=== PATIENT | male | born 1950 | race Caucasian/White ===

== ENCOUNTER 2018-02-19 07:15 | Day surgery (SDC) | payer OTHER ==
--- NOTE | 2018-02-12 15:37 | HP ---
AMENDED REPORT NOW INCLUDES DESIGNATED COSIGNER CC: Dr. Peter Pires * PREOPERATIVE HISTORY AND PHYSICAL: DATE OF ADMISSION: 02/19/18 This patient is scheduled for same-day surgery admission by Dr. Pacheco, on 02/19/18. DATE OF EXAMINATION: 02/12/18 ATTENDING SURGEON: Dr. Khoi Pacheco * (dictated by Briana Russell NP). CHIEF COMPLAINT: Umbilical hernia, right inguinal hernia, possible left inguinal hernia. HISTORY OF PRESENT ILLNESS: The patient is a 67-year-old male with a history of hypertension, hypothyroidism, and benign prostatic hypertrophy. He presented to the office for consultation with Dr. Pacheco with a right inguinal hernia and an umbilical hernia which he has had for up to 1 year. He notes that he was also told that he has a left inguinal hernia by a urologist about 7 years ago. Currently, he has discomfort in the right groin and this is most notable when he coughs or sneezes or if he has been standing for long periods. He denies any umbilical pain or left inguinal pain. He started using a truss for the right inguinal hernia, but discontinued that because it was causing back spasms and he was prescribed a muscle relaxant. He denies any signs or symptoms to suggest incarceration or strangulation; he has nocturia x1 typically , a history of benign prostatic hypertrophy and bladder diverticula for which he sees a urologist in [place]. Dr. Pacheco examined the patient and there is a reducible right inguinal hernia palpated and Dr. Pacheco stated that he could not feel a left inguinal hernia. He noted a reducible umbilical hernia with a 1 to [address] Pacheco reviewed the findings with the patient and discussed surgical options for repair. He explained the nature of hernias and their potential complications. Dr. Pacheco recommended surgical repair and the patient has opted for an open repair of the right inguinal hernia with mesh and open repair of umbilical hernia with mesh and possible open left inguinal hernia repair with mesh. Dr. Pacheco discussed the relevant risks and benefits and today I reviewed the typical postoperative care and recovery. The patient has had a chance to ask questions and stated that he understands the information and is satisfied with the answers given to his questions. He will sign surgical consent on the day of surgery. PAST MEDICAL HISTORY: Hypertension, hypothyroidism, and benign prostatic hypertrophy. PAST SURGICAL HISTORY: Vasectomy and excision of skin cancer on his scalp and tonsillectomy around age 10. MEDICATIONS: 1. Levothyroxine 100 mcg p.o. daily. 2. Amlodipine 5 mg p.o. daily. 3. Lisinopril 40 mg p.o. daily. 4. Tamsulosin 0.4 mg p.o. b.i.d. 5. Metaxalone 800 mg t.i.d. p.r.n. back spasms. He states that he takes most of his medications in the evening. ALLERGIES: No known drug allergies. He is allergic to BEE STINGS. FAMILY HISTORY: Father with a history of pancreatic cancer, sister had breast cancer. No known anesthesia complications, bleeding disorders, or clotting disorders. SOCIAL HISTORY: He is and retired. He is a nonsmoker. He denies use of alcohol or other substances. REVIEW OF SYSTEMS: Constitutional: No fevers, chills, excessive fatigue, or weight loss. Endocrine: He is treated for hypothyroidism. No diabetes. Hematologic: No easy bruising or bleeding. He has never required a blood transfusion. Respiratory: No dyspnea on exertion, no chronic cough. Cardiovascular: No history of myocardial infarction, no anginal chest pain, no palpitations or chest pressure. Gastrointestinal: No nausea, vomiting, diarrhea, GI bleeding, or constipation. No change in bowel habits. Genitourinary: Nocturia x1 typically; benign prostatic hypertrophy. No pain with urination. Musculoskeletal: Intermittent back spasms, currently taking a muscle relaxant as needed, no other joint pain. Integumentary: No chronic rashes or skin changes. Neurologic: No headache, no blurred vision, no areas of focal weakness or numbness. General: No previous anesthesia complications, no history of deep vein thrombosis or pulmonary embolism. PHYSICAL EXAMINATION GENERAL SURVEY: The patient is a 67-year-old overweight male, well developed, in no acute distress. VITAL SIGNS: Height 68.5 inches, weight 225 pounds, body mass index 33.7. Blood pressure 130/84, pulse 72 and regular, respiratory rate 16, temperature 97.3 tympanic. SKIN: Warm, dry, intact. HEENT: Benign. NECK: Supple. No cervical lymphadenopathy, no thyromegaly. Trachea midline. BACK: No CVA tenderness. LUNGS: Breath sounds bilaterally clear and equal. HEART: Regular rate and rhythm. No murmurs or rubs appreciated. ABDOMEN: Obese, active bowel sounds, soft, nondistended, nontender throughout. Obvious umbilical hernia, reducible, with a 1 to 2 cm sized defect. No other obvious abdominal masses, no scars, no organomegaly. Inguinal exam done by Dr. Pacheco reveals a reducible right inguinal hernia and no obvious left inguinal hernia was palpated. EXTREMITIES: Warm, without edema or skin ulceration. GENITALIA AND RECTAL: Exams deferred. NEUROLOGIC: Alert and oriented x3, steady gait. IMPRESSION: 1. Right inguinal hernia. 2. Possible left inguinal hernia. 3. Umbilical hernia. PLAN/RECOMMENDATIONS: Same-day surgery admission to Dr. Pacheco' service on 02/19/18, for open right inguinal hernia repair with mesh, possible open left inguinal hernia repair with mesh, open umbilical hernia repair with mesh. YING RUSSELL, FABRIC AND ACCESSORIES ESTIMATOR [id number]/[facility] #: [id number] MTDD
[~2018-02-19 07:15] MED LIST: Buffered Lidocaine 1% SYRIN* 1 ML/SYRINGE INTRADERM ONE; Dexamethasone IV* 4 MG/ML 1 ML (4 MG) IV SLOW PU ONE; Famotidine IV* 10 MG/ML 2 ML (20 mg) IV ONE; Lactated Ringers 1000 ML Bag* 1,000 ML IV SCH
[2018-02-19] MEDS ORDERED: Dexamethasone IV* 4 MG/ML 1 ML (4 MG) ONE (07:48)
[2018-02-19] MEDS ORDERED: Famotidine IV* 10 MG/ML 2 ML (20 mg) ONE (07:48)
[2018-02-19] MEDS ORDERED: ceFAZolin 2 GM PREMIX in ORs 2 GM/50 ML BAG IVPB ONE (07:48)
[2018-02-19] MEDS ORDERED: fentaNYL* 50 MCG/ML 5 ML VIAL (250 MCG VIAL) ONE (08:42)
[2018-02-19] MEDS ORDERED: Midazolam* 1 MG/ML 2 ML VIAL (2 MG) ONE (08:42)
[2018-02-19] MEDS ORDERED: Lidocaine 1% INJ* 10 MG/ML 30 ML SDV ONE (09:02)
[2018-02-19] MEDS ORDERED: Bupivacaine 0.5% W/EPI SDV* 30 ML VIAL ONE (09:02)
[2018-02-19] MEDS ORDERED: Propofol* 500 MG/50 ML BTL ONE (09:09)
[2018-02-19] MEDS ORDERED: Propofol* 10 MG/ML 20 ML BTL ONE ×2 (09:11→10:46)
[2018-02-19] MEDS ORDERED: Morphine VIAL* 4 MG/ML VIAL (1 ml vial) IV PRN (10:04)
[2018-02-19] MEDS ORDERED: Acetaminophen TAB* 325 MG PO PRN (10:04)
[2018-02-19] MEDS ORDERED: HYDROcodone/ACETAMIN 5-325 MG* 1 TAB PO PRN (10:04)
[2018-02-19] MEDS ORDERED: Ondansetron INJ* 2 MG/ML VIAL IV PRN (10:04)
[2018-02-19] MEDS ORDERED: fentaNYL* 50 MCG/ML 2 ML VIAL (100 MCG VIAL) IV PRN (10:04)
[2018-02-19] MEDS ORDERED: Naloxone* 0.4 MG/ML 1 ML VIAL IV PRN (10:04)
[2018-02-19] MEDS ORDERED: Ketorolac INJ* 30 MG/ML 1 ML VIAL IV PRN (10:04)
[2018-02-19] MEDS ORDERED: fentaNYL* 50 MCG/ML 2 ML VIAL (100 MCG VIAL) ONE ×2 (10:40→12:12)
[2018-02-19] MEDS ORDERED: Ketorolac INJ* 30 MG/ML 1 ML VIAL ONE (11:56)
[2018-02-19] MEDS ORDERED: HYDROcodone/ACETAMIN 5-325 MG* 1 TAB ONE (12:12)
[2018-02-19 12:51] VITALS: BP 125/87
--- NOTE | 2018-02-20 00:46 | OP ---
CC: Peter Pires MD * DATE OF OPERATION: 02/19/18 - [facility] DATE OF : 50 SURGEON: Khoi Pacheco MD HORSE TREKKING GUIDE: TAYA Guardado ANESTHESIOLOGIST: Dr. Duarte. ANESTHESIA: Local MAC. PRE-OP DIAGNOSES: Right inguinal hernia and umbilical hernia. POST-OP DIAGNOSES: Right inguinal hernia and umbilical hernia. OPERATIVE PROCEDURE: Open repair of right inguinal hernia with mesh and open primary repair of umbilical hernia. ESTIMATED BLOOD LOSS: Minimal. FLUIDS: Crystalloids. SPECIMENS: None. DRAINS: None. COMPLICATIONS: None. COUNTS: The instrument, needle, and sponge counts were correct. OPERATIVE FINDINGS: Direct and indirect right inguinal hernia. An 1.5 cm umbilical hernia. DESCRIPTION OF PROCEDURE: The patient was brought to the operating room and placed on the table supine. Sequential compression devices were placed on both lower extremities. Intravenous sedation was administered as well as intravenous antibiotics. The patient was positioned and padded appropriately and he was prepped and draped in the usual sterile fashion and a time-out was performed. Local anesthetic was infiltrated as a field block in the right groin. An oblique incision was created carrying this down into the subcutaneous tissue where crossing veins were divided between clamps and ligated with 4 absorbable ties. Additional subcutaneous tissue was divided with cautery and external oblique aponeurosis was identified, then infiltrated with local anesthetic and opened along the line of its fibers through the superficial ring. The patient had a large indirect inguinal hernia which contained small bowel and there was also a direct inguinal hernia which appeared to contain only fat. The decision was to perform this repair with mesh. First, the ilioinguinal nerve was identified, mobilized, and preserved in the lateral position. The contents of the inguinal canal were then isolated with a 1/4- inch Shakeel drain and the indirect inguinal hernia sac was identified. The cord structures were dissected free from this and this was reduced beyond the deep ring. In order to keep this reduced, a sponge stick was used to hold this in while the dissection proceeded further identifying the direct inguinal hernia. At this point, a Ethicon PHS extended size patch was selected and the preperitoneal space was opened along the lateral border of the rectus. The preperitoneal space was dissected out using blunt dissection with a finger and sponge stick. The inferior epigastric vessels were preserved. The PHS patch was placed with a preperitoneal patch unfurled into the space and then the onlay portion was exteriorized and sutured to the pubic tubercle, the conjoint tendon and the shelving edge of the inguinal ligament with interrupted 2-0 Vicryl suture. An inferior slit was created in the mesh to allow the egress of the spermatic cord. This slit was reconstituted with interrupted suture of 2-0 Prolene. Additional sutures of 2-0 Vicryl were placed along the inguinal ligament and at this point, because of the large size of the direct ring, it was decided to use a mesh plug in this position. So, a plug was placed into the deep ring and sutured to the overlying musculature with 2-0 Vicryl. The lateral portion of the onlay part of the PHS was then tucked beneath the external oblique aponeurosis and sutured to the underlying muscle with 2-0 Vicryl. Due to the patient's obesity and the size of the hernia and the coarse of the ilioinguinal nerve, it was decided that the nerve would have to be sacrificed; and therefore, this was clamped and divided, ligated with 4-0 absorbable tie. The external oblique aponeurosis was then run closed with 2-0 Vicryl and the wound was then tacked with saline moistened gauze as the umbilical hernia was addressed. Local anesthetic was again infiltrated as a field block. An infraumbilical incision was created and the umbilicus was from the anterior abdominal wall using sharp dissection. Fat contained within the hernia was reduced and the edges of the hernia defect were defined as 1.5 cm defect. It was determined that this could be closed primarily and 0 Ethibond suture was used taking 2 U stitches to complete this closure. The umbilical stalk was then reapproximated to the fascia with 3-0 Vicryl and the skin at this site was closed with 3-0 Vicryl for the deep dermis, 4-0 Monocryl for the skin in a running subcuticular fashion. In the groin, the Jose's fascia was closed with 3-0 Vicryl in interrupted fashion. The skin was closed with 4-0 Monocryl in subcuticular fashion. Steri-Strips and dressings were applied at both sites. The patient tolerated the procedure well, was awakened and transferred to recovery room in stable condition. [id number]/[facility] #: [id number] MTDD
== END 2018-02-19 13:15 | disposition home or self-care (01) ==
LOC: OR 07:15
PROVIDERS: ATTEND Surgery
DX: K40.90 Unilateral inguinal hernia, without obstruction or gangrene, not specified as recurrent (principal); K42.9 Umbilical hernia without obstruction or gangrene; I10 Essential (primary) hypertension; E03.9 Hypothyroidism, unspecified; N40.0 Benign prostatic hyperplasia without lower urinary tract symptoms; Z85.828 Personal history of other malignant neoplasm of skin
CPT/HCPCS: C1781; J0690; J1100; J1885; J2250; J2704; J3010

== ENCOUNTER 2018-12-03 06:07 | Emergency (ER) | payer MEDICARE ==
--- OUTSIDE RECORDS SUMMARY | 2018-12-03 06:16 | XMS REPORT | Continuity of Care Document ---
:1950 External Reference #:[id number] Author Name Khoi Pacheco MD, FACS (transmitted by agent of provider Masha Devries) Address [address] [place] [address] Care Team Providers Name Role Phone Peter Pires MD - Family Medicine Care Team Information Guest Services Agent [phone] Problems Description No Information Available Social History Type Date Description Comments Sex Unknown Smokeless Tobacco Never Used Smokeless Tobacco ETOH Use Occasionally consumes alcohol Tobacco Use Start: Unknown Patient has never smoked Recreational Drug Use Current Drug User occasional marijuana Smoking Status Reviewed: 12/02/18 Patient has never smoked Exercise Type/Frequency Exercises regularly Allergies, Adverse Reactions, Alerts Active Allergies Reaction Severity Comments Date Bee Sting 12/25/2017 Medications Active Medications SIG Qnty Indications Ordering Provider Date Levothyroxine Sodium 1 by mouth Unknown 100mcg every day Tablets Amlodipine Besylate 1 by mouth Unknown 5mg every day Tablets Lisinopril 1 by mouth Unknown 40mg Tablets every day Tamsulosin HCL 1 by mouth Unknown 0.4mg Capsules twice a day Immunizations Description No Information Available Vital Signs Date Vital Result Comment 12/02/2018 8:49am Height 68.5 inches 5'8.50" Weight 220.00 lb Heart Rate 72 /min BP Systolic Sitting 124 mmHg BP Diastolic Sitting 82 mmHg Respiratory Rate 18 /min Body Temperature 97.7 F BMI (Body Mass Index) 33.0 kg/m2 03/12/2018 2:00pm Heart Rate 58 /min Respiratory Rate 18 /min Body Temperature 97.2 F Results Description No Information Available Procedures Description No Information Available Medical Devices Description No Information Available Encounters Description No Information Available Assessments Date Code Description Provider 12/02/2018 R10.31 Right lower quadrant pain Khio Pacheco MD, FACS Plan of Treatment Future Appointment(s):12/19/2018 1:15 pm - Khoi Pacheco MD, FACS at [facility]12/02/2018 - Khoi Pacheco MD, FACSR10.31 Right lower quadrant painFollow up:after testing is completed Functional Status Description No Information Available Mental Status Description No Information Available Referrals Description No Information Available
[2018-12-03 06:50] VITALS: BP 141/93
--- NOTE | 2018-12-03 06:59 | ED ---
Lower Extremity - HPI Summary HPI Summary: Patient is a 68-year-old who presents emergency department for left hip pain 1- 2 weeks. Patient states he picked up his rowboat a few weeks ago and since has had left hip pain. Patient states pain initially started in his left low back but now since he primarily in his left hip and radiates to his anterior left leg. Patient denies numbness, tingling or weakness in legs. Denies R bladder incontinence or retention. Patient's ultimate doctor last week and had an outpatient hip x-ray performed which showed mild arthritic changes per radiology. Patient was prescribed naproxen but states he only took one dose. Patient states he has had similar symptoms in the past on his right side and a muscle relaxer has been helpful. Patient otherwise denies fever, chest pain, shortness of breath, abdominal pain, urinary symptoms. Symptoms mild in severity. Activities make symptoms worse. Sitting up in a chair makes symptoms better. - History of Current Complaint Chief Complaint: EDHipPelvisInjury Stated Complaint: HIP/L LEG PAIN PER PT Time Seen by Provider: 12/03/18 06:27 Hx Obtained From: Patient Pain Intensity: 8 - Allergies/Home Medications Allergies/Adverse Reactions: Allergies Allergy/AdvReac Type Severity Reaction Status Date / Time No Known Allergies Allergy Verified 12/03/18 06:10 PMH/Surg Hx/FS Hx/Imm Hx Previously Healthy: Yes Endocrine/Hematology History: Reports: Hx Thyroid Disease Cardiovascular History: Reports: Hx Hypertension - on meds Denies: Other Cardiovascular Problems/Disorders Respiratory History: Denies: Other Respiratory Problems/Disorders GI History: Denies: Other GI Disorders Sensory History: Denies: Hx Contacts or Glasses, Hx Hearing Aid Opthamlomology History: Denies: Hx Contacts or Glasses Neurological History: Reports: Hx Migraine - past Denies: Other Neuro Impairments/Disorders Psychiatric History: Reports: Hx Depression - hx of, no meds - Surgical History Surgery Procedure, Year, and Place: 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 vasectomy 40 yrs ago Hx Anesthesia Reactions: No Infectious Disease History: No Infectious Disease History: Denies: Traveled Outside the [place] in Last 30 Days - Family History Known Family History: Positive: Non-Contributory - Social History Occupation: Retired Lives: With Family Alcohol Use: Occasionally Alcohol Amount: 1 per month Substance Use Type: Reports: Marijuana Substance Use Comment - Amount & Last Used: daily Hx Tobacco Use: No Smoking Status (MU): Never Smoked Tobacco Review of Systems Constitutional: Negative Negative: Fever Cardiovascular: Negative Negative: Chest Pain Respiratory: Negative Negative: Shortness Of Breath Gastrointestinal: Negative Negative: Abdominal Pain Genitourinary: Negative Negative: dysuria, flank pain, hematuria Positive: Other - left hip pain. Skin: Negative Neurological: Negative Negative: Weakness, Paresthesia, Numbness All Other Systems Reviewed And Are Negative: Yes Physical Exam Triage Information Reviewed: Yes Vital Signs On Initial Exam: Initial Vitals Temp Pulse Resp BP Pulse Ox 97.5 F 68 15 145/91 97 12/03/18 06:08 12/03/18 06:08 12/03/18 06:08 12/03/18 06:08 12/03/18 06:08 Vital Signs Reviewed: Yes Appearance: Positive: Well-Appearing - Pt. sitting up in bed in NAD. Skin: Positive: Warm, Dry Head/Face: Positive: Normal Head/Face Inspection Eyes: Positive: Normal, EOMI Neck: Positive: Supple Musculoskeletal: Positive: Other - Good pedal pulses bilateral lower extremities. No calf edema or tenderness. No midline lumbar tenderness. Minimal pain over left SI joint. Full range of motion of left hip without reproducible pain. Negative straight leg test bilaterally. Neurological: Positive: Normal, CN Intact II-III Psychiatric: Positive: Affect/Mood Appropriate Procedures - Sedation Patient Received Moderate/Deep Sedation with Procedure: No Diagnostics - Vital Signs Vital Signs Temp Pulse Resp BP Pulse Ox 12/03/18 06:30 66 97 12/03/18 06:28 68 141/93 96 12/03/18 06:08 97.5 F 68 15 145/91 97 - Laboratory Lab Statement: Any lab studies that have been ordered have been reviewed, and results considered in the medical decision making process. Lower Extremity Course/Dx - Course Course Of Treatment: Pt. with ongoing left hip pain. He is ambulatory without difficulty. Xray reviewed from 11/28. Suspect muscular injury in nature. Pt. notes muscel relaxer has helped in the past, will rx flexeril. Advised to take rx naproxen as directed. Ice intermittently. Gentle stretching. Pt. apt. with ortho next week. Activity as tolerated. Given return precautions. Pt understands and agrees with plan. - Diagnoses Differential Diagnosis/HQI/PQRI: Positive: Contusion, Fracture (Closed), Sprain , Strain, Tendonitis Provider Diagnoses: Hip sprain Discharge ED - Sign-Out/Discharge Documenting (check all that apply): Patient Departure - Discharge Plan Condition: Good Disposition: HOME Prescriptions: Cyclobenzaprine TAB* [Flexeril 10 MG TAB*] 10 mg PO TID PRN #12 tab PRN Reason: Pain - Moderate Patient Education Materials: Hip Sprain (ED), Lower Back Exercises (ED) Referrals: Enzo Sandoval MD [Medical Doctor] - Peter Pires MD [Primary Care Provider] - Additional Instructions: Follow up with orthopedic next week as scheduled Continue Naproxen as directed Muscle relaxer as directed Ice intermittently Gentle stretching Return to ER if symptoms change or worsen - Billing Disposition and Condition Condition: GOOD Disposition: Home
== END 2018-12-03 07:01 | disposition home or self-care (01) ==
LOC: ED 06:07
DX: S73.102A Unspecified sprain of left hip, initial encounter (principal); X50.9XXA Other and unspecified overexertion or strenuous movements or postures, initial encounter; Y92.9 Unspecified place or not applicable; E07.9 Disorder of thyroid, unspecified; I10 Essential (primary) hypertension; Z79.899 Other long term (current) drug therapy; Z85.828 Personal history of other malignant neoplasm of skin; Z98.52 Vasectomy status
CPT/HCPCS: 99282

== ENCOUNTER 2019-01-28 12:17 | Emergency (ER) | payer MEDICARE ==
--- OUTSIDE RECORDS SUMMARY | 2019-01-28 12:37 | XMS REPORT | Continuity of Care Document ---
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 Problems Description No Information Available Social History Type Date Description Comments Sex Unknown Smokeless Tobacco Never Used Smokeless Tobacco ETOH Use Occasionally consumes alcohol Tobacco Use Start: Unknown Patient has never smoked Recreational Drug Use Current Drug User occasional marijuana Smoking Status Reviewed: 12/17/18 Patient has never smoked Exercise Type/Frequency Exercises regularly Allergies, Adverse Reactions, Alerts Active Allergies Reaction Severity Comments Date Bee Sting 12/25/2017 Medications Active Medications SIG Qnty Indications Ordering Provider Date Levothyroxine Sodium 1 by mouth Unknown 100mcg every day Tablets Amlodipine Besylate 1 by mouth Unknown 5mg every day Tablets Lisinopril 1 by mouth Unknown 40mg Tablets every day Tamsulosin HCL 2tabs by mouth Unknown 0.4mg Capsules once a day History Medications Predisone pt states he is taking a 9 day Flip Dixon M.D. 12/09/2018 - 12/16/2018 supply then taper off to discontinue Immunizations Description No Information Available Vital Signs Date Vital Result Comment 12/17/2018 9:42am Height 68.5 inches 5'8.50" Weight 225.00 lb stated Heart Rate 74 /min BP Systolic 128 mmHg BP Diastolic 76 mmHg Respiratory Rate 12 /min Pain Level 4 BMI (Body Mass Index) 33.7 kg/m2 12/09/2018 1:45pm Height 68.5 inches 5'8.50" Weight 225.25 lb Heart Rate 86 /min BP Systolic 140 mmHg BP Diastolic 98 mmHg Respiratory Rate 18 /min Body Temperature 98.2 F Pain Level 0 BMI (Body Mass Index) 33.7 kg/m2 Results Description No Information Available Procedures Date Code Description Status 12/17/2018 Inj/Aspir Major JT Or Bursa W/ US Completed Medical Devices Description No Information Available Encounters Type Date Location Provider Dx Diagnosis Office Visit 12/02/2018 [facility] Khoi Pacheco, R10.31 Right lower 8:45a Of Cheo LACKEY, FACS quadrant pain Assessments Date Code Description Provider 12/17/2018 M54.5 Low back pain Get oRdriguez MD 12/17/2018 M16.12 Unilateral primary osteoarthritis, left Get Rodriguez MD hip 12/17/2018 M54.16 Radiculopathy, lumbar region Get Rodriguez MD 12/09/2018 M54.5 Low back pain Flip Dixon M.D. 12/09/2018 S76.112D Strain of left quadriceps muscle, fascia Flip Dixon M.D. and tendon, subsequent encounter 12/02/2018 R10.31 Right lower quadrant pain Khoi Pacheco MD, FACS Plan of Treatment Future Appointment(s):12/31/2018 1:15 pm - Get Rodriguez MD at [facility] at [id number]/17/2018 - Get Rodriguez MDM54.5 Low back painNew Therapy:Physical TherapyFollow up:Follow up: 2 pgvmcW53.12 Unilateral primary osteoarthritis, left hipNew Therapy:Physical RtvlyztA31.16 Radiculopathy, lumbar regionNew Therapy:Physical Therapy Functional Status Description No Information Available Mental Status Description No Information Available Referrals Description No Information Available
--- OUTSIDE RECORDS SUMMARY | 2019-01-28 12:37 | XMS REPORT | Continuity of Care Document ---
:1950 External Reference #:[id number] Author Name Annette Judith, FREDIS Address [address] [place] [address] Care Team Providers Name Role Phone Jason Higgins MD - Cardiovascular Care Team Information Manager Fashion Disease Kendy Pearce MD - Dermatology Care Team Information Manager Fashion [phone] Gastroenterology [facility] - Care Team Information Manager Fashion [phone] Gastroenterology Elizabeth Flanagan - Gastroenterology Care Team Information Manager Fashion [phone] Problems Active Problems Provider Date Digestive symptom Peter Pires M.D. Onset: 09/06/2015 Mixed hyperlipidemia Peter Pires M.D. Onset: 05/24/2015 Disorder of thyroid gland Peter Pires M.D. Onset: 05/24/2015 Atypical depressive disorder Peter Pires M.D. Onset: 05/24/2015 Essential hypertension Peter Pires M.D. Onset: 05/24/2015 Hypothyroidism Peter Pires M.D. Onset: 07/04/2012 Diarrhea Peter Pires M.D. Onset: 11/17/2011 Benign prostatic hypertrophy without outflow Peter Pires M.D. Onset: obstruction Congenital anomaly of aorta Peter Pires M.D. Onset: 11/17/2011 Depressive disorder Peter Pires M.D. Onset: 11/17/2011 Benign essential hypertension Peter Pires M.D. 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 100mcg Tablets Day Amlodipine Besylate Take 1 Tablet 90tabs I10 Peter FKasia Piers, 05/17/2012 5mg By Mouth Every M.D. Tablets Day Lisinopril Take 1 Tablet 90tabs I10 Peter F. Pranay, 05/27/2010 40mg Tablets By Mouth Every M.D. Day I10 Tamsulosin HCL 1 by mouth every day Unknown 0.4mg Capsules Cyclobenzaprine HCL take 1-2 tablets by mouth Unknown 5mg Tablets at night as needed for back spasm History Medications Naproxen take one tablet 45tabs M25.552 Marine Capps, [facility] 11/28/2018 - 500mg by mouth every 12/04/2018 Tablets 12 hours with food M54.5 M25.551 Unithroid Take 1 Tablet By 90Tablet Peter AnetaKasia Pires, 11/09/2018 - 100mcg Mouth Every Day M.D. 11/28/2018 Tablets Immunizations CPT Code Status Date Vaccine Lot # [id number] Given 11/29/2017 High-Dose, Influenza Virus Vacccine-fluzone 65 and older [id number] Given 03/06/2017 High-Dose, Influenza Virus Vacccine-fluzone 65 and older 83816 Given 05/24/2015 Zostivax [id number] Given 11/22/2010 DO Not Use Split Influenza Virus Vaccine [id number] Given 01/24/2005 Td Immunization, For Use In Individuals 7 Years Or Older Vital Signs Date Vital Result Comment 12/04/2018 2:03pm BP Systolic 160 mmHg BP Diastolic 100 mmHg Heart Rate 72 /min Body Temperature 97.9 F Respiratory Rate 18 /min Weight 224.00 lb 11/28/2018 10:32am BP Systolic 122 mmHg BP Diastolic 70 mmHg Heart Rate 66 /min Body Temperature 97.5 F Height 67.5 inches 5'7.50" Weight 224.00 lb BMI (Body Mass Index) 34.6 kg/m2 Results Description No Information Available Procedures Date Code Description Status 11/26/2015 28601510 Colonoscopy Completed 11/17/2015 68166733 Colonoscopy Completed Medical Devices Description No Information Available Encounters Type Date Location Provider Dx Diagnosis Office Visit 11/28/2018 [facility] FREDIS Zuniga M25.552 Pain in left hip 10:30a M54.5 Low back pain M25.551 Pain in right hip Assessments Date Code Description Provider 12/04/2018 M25.552 Pain in left hip Annette Wong, FREDIS 12/04/2018 M79.605 Pain in left leg FREDIS Soto 11/28/2018 M25.552 Pain in left hip Marine Capps, FREDIS 11/28/2018 M54.5 Low back pain Marine Capps, FREDIS 11/28/2018 M25.551 Pain in right hip FREDIS Zuniga Plan of Treatment 12/04/2018 - Annette Judith, VINODPM25.552 Pain in left hipNew Medication: Prednisone 20 mg - 3 tabs x 4 days, 2 tab x 3 days, 1 tab x 3 days then stopComments:SYMPTOMS are MOST consistent with osteoarthritis of the hip, in a flareWhy flare? Who knows, maybe Dr Paige does!NO NAPROXEN while using my PREDNISONE Ok to continue cyclobenzeprine as previously prescribed if it's helpfulHeat/cold as helpful, tolerated; if you can get in a hot tub that might really workAlso remember epsom soak for sore muscles-- if getting in/out of tub is possible If Prednisone makes it worse, or you develop any new/unusual symptoms, you need to be seen again promptlyI won't haveyou book follow-up here since you're seeing orthopod on Sunday, but do come back if you don't make trxrvwsjW60.605 Pain in left legAllComments:Medication Management Patient Understands medications he 's taking? Yes No Are there Barriers to Adherence? Yes No Has the patient been asked about herbal supplements and therapies, andOTC meds? Yes No As always, we strongly encourage a healthy diet and making physical activity a part of your every day life. If you have questions about how or where to start, please contact the office. Functional Status Description No Information Available Mental Status Description No Information Available Referrals Description No Information Available
--- OUTSIDE RECORDS SUMMARY | 2019-01-28 12:37 | XMS REPORT | Continuity of Care Document ---
:1950 External Reference #:[id number] Author Name Flip Dixon M.D. 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 Problems Description No Information Available Social History Type Date Description Comments Sex Unknown Smokeless Tobacco Never Used Smokeless Tobacco ETOH Use Occasionally consumes alcohol Tobacco Use Start: Unknown Patient has never smoked Recreational Drug Use Current Drug User occasional marijuana Smoking Status Reviewed: 12/09/18 Patient has never smoked Exercise Type/Frequency Exercises regularly Allergies, Adverse Reactions, Alerts Active Allergies Reaction Severity Comments Date Bee Sting 12/25/2017 Medications Active Medications SIG Qnty Indications Ordering Date Provider Predisone pt states he is Flip Dixon M.D. 12/09/2018 taking a 9 day supply then taper off to discontinue Levothyroxine Sodium 1 by mouth every Unknown day 100mcg Tablets Amlodipine Besylate 1 by mouth every Unknown 5mg day Tablets Lisinopril 1 by mouth every Unknown 40mg Tablets day Tamsulosin HCL 2tabs by mouth once Unknown 0.4mg a day Capsules Immunizations Description No Information Available Vital Signs Date Vital Result Comment 12/09/2018 1:45pm Height 68.5 inches 5'8.50" Weight 225.25 lb Heart Rate 86 /min BP Systolic 140 mmHg BP Diastolic 98 mmHg Respiratory Rate 18 /min Body Temperature 98.2 F Pain Level 0 BMI (Body Mass Index) 33.7 kg/m2 12/02/2018 8:49am Height 68.5 inches 5'8.50" Weight 220.00 lb Heart Rate 72 /min BP Systolic Sitting 124 mmHg BP Diastolic Sitting 82 mmHg Respiratory Rate 18 /min Body Temperature 97.7 F BMI (Body Mass Index) 33.0 kg/m2 Results Description No Information Available Procedures Description No Information Available Medical Devices Description No Information Available Encounters Type Date Location Provider Dx Diagnosis Office Visit 12/02/2018 [facility] Pacheco, R10.31 Right lower 8:45a [facility], FACS quadrant pain Assessments Date Code Description Provider 12/09/2018 M54.5 Low back pain Flip Dixon M.D. 12/09/2018 S76.112D Strain of left quadriceps muscle, fascia Flip Dixon M.D. and tendon, subsequent encounter 12/02/2018 R10.31 Right lower quadrant pain Khoi Pacheco MD, FACS Plan of Treatment Future Appointment(s):01/06/2019 9:30 am - Flip Dixon M.D. at [facility]12/19/2018 1:15 pm - Khoi Pacheco MD, FACS at [facility]12/09/2018 - Flip Dixon M.D.M54.5 Low back painNew Therapy: Physical TherapyFollow up:Follow up: 3 - 5 bvmajD22.112D Strain of left quadriceps muscle, fascia and tendon, subsequent encounter Functional Status Description No Information Available Mental Status Description No Information Available Referrals Description No Information Available
--- OUTSIDE RECORDS SUMMARY | 2019-01-28 12:37 | XMS REPORT | Continuity of Care Document ---
:1950 External Reference #:[id number] Author Name Get Rodriguez MD (transmitted by agent of provider Mary Odom) Address [address] [place] [id number] Care Team Providers Name Role Phone Peter Pires MD - Family Medicine Care Team Information Ict Analyst [phone] Problems Active Problems Provider Date Strain of rotator cuff capsule Get Rodriguez MD Onset: 01/23/2019 Social History Type Date Description Comments Sex Unknown Smokeless Tobacco Never Used Smokeless Tobacco ETOH Use Occasionally consumes alcohol Tobacco Use Start: Unknown Patient has never smoked Recreational Drug Use Current Drug User occasional marijuana Smoking Status Reviewed: 01/23/19 Patient has never smoked Exercise Type/Frequency Exercises [...] 12/16/2018 supply then taper off to discontinue Medications Administered in Office Medication SIG Qnty Indications Ordering Provider Date No Injection Get Rodriguez MD 12/17/2018 Injection Depomedrol 40MG Get Rodriguez MD 12/17/2018 Injection Immunizations Description No Information Available Vital Signs Date Vital Result Comment 01/23/2019 3:20pm Height 68.5 inches 5'8.50" Weight 225.00 lb Heart Rate 88 /min BP Systolic 130 mmHg BP Diastolic 88 mmHg Respiratory Rate 18 /min Body Temperature 98.0 F Pain Level 8 BMI (Body Mass Index) 33.7 kg/m2 12/31/2018 1:16pm Height 68.5 inches 5'8.50" Weight 225.00 lb Heart Rate 64 /min BP Systolic Sitting 124 mmHg BP Diastolic Sitting 80 mmHg Respiratory Rate 16 /min Pain Level 4 BMI (Body Mass Index) 33.7 kg/m2 Results Description No Information Available Procedures Date Code Description Status 12/17/2018 Inj/Aspir Major JT Or Bursa W/ US Completed Medical Devices Description No Information Available Encounters Type Date Location Provider Dx Diagnosis Office Visit 01/23/2019 [facility] Get Cornell S46.012A Strain of 2:45p at Aure Rodriguez MD musc/tend the rotator cuff of left shoulder, init Office Visit [facility]/31[facility] M54.5 Low back pain 1:15p at Aure Rodriguez MD M54.16 Radiculopathy, lumbar region M16.12 Unilateral primary osteoarthritis, left hip Office Visit 12/17/2018 9:30a [facility] Get Cornell M54.5 Low back at Aure Rodriguez MD pain M16.12 Unilateral primary osteoarthritis, left hip M54.16 Radiculopathy, lumbar region Office Visit 12/09/2018 1:30p [facility] Flip Dixon[facility] M54.5 [facility] Strain of left quadriceps muscle, fascia and tendon, init Office Visit 12/02/2018 8:45a [facility] Pacheco, R10.31 Right lower [facility], FACS quadrant pain Assessments Date Code Description Provider 01/23/2019 S46.012A Strain of muscle(s) and tendon(s) of the Get Rodriguez MD rotator cuff of left shoulder, initial encounter 12/31/2018 M54.5 Low back pain Get Rodriguez MD 12/31/2018 M54.16 Radiculopathy, lumbar region Get Rodriguez MD 12/31/2018 M16.12 Unilateral primary osteoarthritis, left Get Rodriguez MD hip 12/17/2018 M54.5 Low back pain Get Rodriguez MD 12/17/2018 M16.12 Unilateral primary osteoarthritis, left Get Rodriguez MD hip 12/17/2018 M54.16 Radiculopathy, lumbar region Get Rodriguez MD 12/09/2018 M54.5 Low back pain Flip Dixon M.D. 12/09/2018 S76.112A Strain of left quadriceps muscle, fascia Flip Dixon M.D. and tendon, initial encounter 12/02/2018 R10.31 Right lower quadrant pain Khoi Pacheco MD, FACS Plan of Treatment 01/23/2019 - Get Rodriguez, MDS46.012A Strain of muscle(s) and tendon(s) of the rotator cuff of left shoulder, initial encounterNew Xrays:MRI Shoulder Left W/O, Ordered: 01/23/19Follow up:Follow up: After MRI - MRI left shoulder , likely RC tear Functional Status Description No Information Available Mental Status Description No Information Available Referrals Refer to Reason for Referral Status Appt Date Rudy Blanca MD Referral for left lower extremity pain, Created radiculopathy, MRI pending [address] [place] [phone]
--- NOTE | 2019-01-28 13:00 | ED ---
Upper Extremity Pain - HPI Summary HPI Summary: This pt is a 68 y/o [facility] worsening left shoulder pain s/ p recent fall today and injury 3 weeks ago. Pt reports 3 weeks ago he was walking to his car when he slipped and fell on his buttocks striking his left elbow. He notes he saw Dr. Rodriguez, orthopedist, and was told he needed an MRI to rule our torn rotator cuff (which has already been scheduled). At that time pt had abduction of left arm up to 90 degrees and couldn't abduct arm any higher. Today he was in a loco when he slipped and fell landing on his left shoulder/left anterior chest. Today he reports he is unable to raise his left arm secondary to pain. He denies any other injuries from today's fall. Pt states he is able to ambulate without any difficulties. No PMHx. Denies tobacco, alcohol and drug use. NKDA. Medications reviewed. Allergies noted. - History of Current Complaint Chief Complaint: ROXANAhouJe Stated Complaint: FALL- SHOULDER AND BACK PAIN Time Seen by Provider: 01/28/19 12:52 Hx Obtained From: Patient Mechanism Of Injury: Fall From A Standing Position Onset/Duration: Started Hours Ago, Still Present Timing: Lasting Hours Severity Currently: Mild Pain Location: Shoulder - left Aggravating Factor(s): Movement, Abduction Alleviating Factor(s): Rest Associated Signs & Symptoms: Positive: Negative - Allergies/Home Medications Allergies/Adverse Reactions: Allergies Allergy/AdvReac Type Severity Reaction Status Date / Time bee venom protein (honey bee) Allergy Swelling Verified 01/28/19 12:26 PMH/Surg Hx/FS Hx/Imm Hx Endocrine/Hematology History: Reports: Hx Thyroid Disease Denies: Hx Diabetes Cardiovascular History: Reports: Hx Hypertension - on meds Denies: Hx Pacemaker/ICD, Other Cardiovascular Problems/Disorders Respiratory History: Denies: Other Respiratory Problems/Disorders GI History: Denies: Other GI Disorders History: Denies: Hx Renal Disease Sensory History: Denies: Hx Contacts or Glasses, Hx Hearing Aid Opthamlomology History: Denies: Hx Contacts or Glasses Neurological History: Reports: Hx Migraine - past Denies: Other Neuro Impairments/Disorders Psychiatric History: Reports: Hx Depression - hx of, no meds Denies: Hx Panic Disorder - Cancer History Cancer Type, 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 vasectomy 40 yrs ago. HERNIA REPAIR 02/2018 [facility] Hx Anesthesia Reactions: No Infectious Disease History: No Infectious Disease History: Denies: Traveled Outside the [place] in Last 30 Days - Family History Known Family History: Positive: Non-Contributory - Social History Alcohol Use: Occasionally Alcohol Amount: 1 per month Substance Use Type: Reports: Marijuana Substance Use Comment - Amount & Last Used: daily Hx Tobacco Use: No Smoking Status (MU): Never Smoked Tobacco Review of Systems Negative: Fever Cardiovascular: Negative Respiratory: Negative Gastrointestinal: Negative Musculoskeletal: Other - POSITIVE: left shoulder pain Neurological: Negative All Other Systems Reviewed And Are Negative: Yes Physical Exam - Summary Physical Exam Summary: Constitutional: Well-developed, Well-nourished, Alert. (-) Distressed Skin: Warm, Dry HENT: Normocephalic; Atraumatic Eyes: Conjunctiva normal Neck: Musculoskeletal ROM normal neck. (-) JVD, (-) Stridor, (-) Tracheal deviation Cardio: Rhythm regular, rate normal, Heart sounds normal; Intact distal pulses; The pedal pulses are 2+ and symmetric. Radial pulses are 2+ and symmetric. (-) Murmur Pulmonary/Chest wall: Effort normal. (-) Respiratory distress, (-) Wheezes, (-) Rales Abd: Soft, (-) tenderness, (-) Distension, (-) Guarding, (-) Rebound Musculoskeletal: Left upper extremity: tenderness to the left anterior shoulder. Refusing to move at shoulder due to pain. 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 No distal tenderness. Radial pulse 2+. Lymph: (-) Cervical adenopathy Neuro: Alert, Oriented x3 Psych: Mood and affect Normal Triage Information Reviewed: Yes Vital Signs On Initial Exam: Initial Vitals Temp Pulse Resp BP Pulse Ox 99.3 F 93 16 144/106 98 01/28/19 12:22 01/28/19 12:22 01/28/19 12:22 01/28/19 12:22 01/28/19 12:22 Vital Signs Reviewed: Yes Procedures - Sedation Patient Received Moderate/Deep Sedation with Procedure: No Diagnostics - Vital Signs Vital Signs Temp Pulse Resp BP Pulse Ox 01/28/19 12:22 99.3 F 93 16 144/106 98 - Laboratory Lab Statement: Any lab studies that have been ordered have been reviewed, and results considered in the medical decision making process. - Radiology Left shoulder XR Radiology Interpretation Completed By: Radiologist Summary of Radiographic Findings: IMPRESSION: Again measured as a 7 mm joint space width at the left acromioclavicular joint. Please correlate to signs or symptoms of AC separation injury. If the patient's sympts persist, follow-up imaging is recommended. Dr. Chiang has reviewed this report. Course/Dx - Course Course Of Treatment: Patient is here with worsening pain and immobility in his left shoulder following a second fall. She had x-ray performed which showed no fracture. Patient had no other injury. Patient has follow-up already scheduled with orthopedic surgery for an MRI. Patient is placed in a sling for comfort - Diagnoses Provider Diagnoses: Injury of left shoulder Discharge ED - Sign-Out/Discharge Documenting (check all that apply): Patient Departure - Discharge home - Discharge Plan Condition: Stable Disposition: HOME Patient Education Materials: Shoulder Pain (ED) Referrals: Peter Pires MD [Primary Care Provider] - Get Rodriguez MD [Medical Doctor] - Additional Instructions: Follow up with orthopedics. Take Ibuprofen and Tylenol for the pain. Use the sling for comfort. PLEASE RETURN TO EMERGENCY DEPARTMENT FOR ANY CONCERNING SYMPTOMS. - Billing Disposition and Condition Condition: STABLE Disposition: Home - Attestation Statements Document Initiated by Shayna: Yes Documenting Scribe: Zoya Giang Provider For Whom Shayna is Documenting (Include Credential): Dusty Chiang MD Scribe Attestation: Zoya Olivo, scribed for Dusty Chiang MD on 01/28/19 at 1851. Scribe Documentation Reviewed: Yes Provider Attestation: The documentation as recorded by the Zoya nielson accurately reflects the service I personally performed and the decisions made by , Dusty Chiang MD Status of Scribe Document: Viewed
[2019-01-28 14:36] VITALS: BP 116/92
== END 2019-01-28 14:35 | disposition home or self-care (01) ==
LOC: ED 12:17
DX: S49.92XA Unspecified injury of left shoulder and upper arm, initial encounter (principal); W01.0XXA Fall on same level from slipping, tripping and stumbling without subsequent striking against object, initial encounter; Y92.9 Unspecified place or not applicable; I10 Essential (primary) hypertension; Z91.030 Bee allergy status
CPT/HCPCS: 99282